=== PATIENT | male | born 1950 | race Caucasian/White ===

== ENCOUNTER 2024-10-04 10:36 | Emergency (ER) | payer OTHER ==
[2024-10-04] MEDS: Proparacaine 0.5% Ophth Soln 15 ML Bottle EYERT ONE (11:12)
[2024-10-04] MEDS: Fluorescein 1 MG Ophth Strip EYERT ONE (11:12)
== END 2024-10-04 11:20 | disposition home or self-care (01) ==
LOC: DL.ED 10:36
DX: S05.00XA Injury of conjunctiva and corneal abrasion without foreign body, unspecified eye, initial encounter (principal); T15.01XA Foreign body in cornea, right eye, initial encounter; X58.XXXA Exposure to other specified factors, initial encounter
CPT/HCPCS: 65205; 99282; 99283-25; J3490